=== PATIENT | female | born 1960 | race American Indian/Alaskan Native ===

== ENCOUNTER 2016-10-08 06:18 | Day surgery (SDC) | payer OTHER ==
[2016-10-08] MEDS ORDERED: ECOTRIN PO ONE (06:36)
[2016-10-08] MEDS ORDERED: NACL 0.9% 500 ML 500 ML IV SCH (07:00)
[2016-10-08 07:29] LABS: Basophils % (Auto) 0.8 % (0.0-1.8); Eosinophils % (Auto) 2.3 % (0.0-4.3); Hematocrit 37.4 % (30.3-42.9); Hemoglobin 12.8 gm/dl (10.1-14.3); Mean Corpuscular HGB Conc 34 % (30-34); Mean Corpuscular Hemoglobin 30 pg (28-32); Mean Corpuscular Volume 88 fl (79-97); Platelet Count 191 K/mm3 (140-440); Red Blood Count 4.25 M/mm3 (3.65-5.03); Red Cell Distribution Width 13.4 % (13.2-15.2); White Blood Count 8.3 K/mm3 (4.5-11.0)
[2016-10-08 07:40] LABS: Anion Gap 17 mmol/L; Blood Urea Nitrogen 16 mg/dL (7-17); Calcium 9.1 mg/dL (8.4-10.2); Carbon Dioxide 27 mmol/L (22-30); Chloride 102.6 mmol/L (98-107); Glucose 117 mg/dL (65-100); INR 0.98 (0.87-1.13); Sodium 143 mmol/L (137-145)
[2016-10-08] MEDS ORDERED: HEPARIN 10,000 UNITS/10 ML ONE (08:22)
[2016-10-08] MEDS ORDERED: HEPARIN/NS 5000 UNIT/500ML(CATH LAB) 1,000 ML IR ONE (08:22)
[2016-10-08] MEDS ORDERED: CALAN ONE (08:22)
[2016-10-08] MEDS: SUBLIMAZE ONE ×2 (08:32→08:43)
[2016-10-08] MEDS: HEPARIN 10,000 UNITS/10 ML ONE ×2 (08:33→08:42)
[2016-10-08] MEDS: VERSED ONE ×2 (08:33→08:42)
[2016-10-08] MEDS ORDERED: XYLOCAINE 2% INFILTRATI ONE (08:33)
[2016-10-08] MEDS: XYLOCAINE 2% INFILTRATI ONE ×2 (08:37→08:42)
[2016-10-08] MEDS ORDERED: PROVENTIL IH ONE (09:28)
--- NOTE | 2016-10-08 10:07 | Short Stay Summary ---
Short Stay Documentation Date of service: 10/08/16 - History H&P: obtained from office - Allergies and Medications Current Medications: Allergies hydrocodone bitartrate [From [place]] Allergy (Verified 10/08/16 06:35) Rash tramadol Allergy (Verified 10/08/16 06:35) Rash Home Medications Medication Instructions Recorded Confirmed Last Taken Type Aspirin [Adult Low Dose Aspirin EC] 81 mg PO QDAY 10/08/16 10/08/16 10/07/16 History Bumetanide [Bumetanide] 1 mg PO QDAY 10/08/16 10/08/16 10/07/16 History Glimepiride [Glimepiride] 4 mg PO QDAY 10/08/16 10/08/16 10/07/16 History Levothyroxine [Synthroid] 100 mcg PO QAM 10/08/16 10/08/16 10/07/16 History Metoprolol Tartrate [Lopressor] 50 mg PO QDAY 10/08/16 10/08/16 10/07/16 History Omeprazole (Nf) [PriLOSEC (Nf)] 20 mg PO QDAY 10/08/16 10/08/16 10/07/16 History Simvastatin [Simvastatin] 40 mg PO QDAY 10/08/16 10/08/16 10/07/16 History Active Medications Sodium Chloride (Nacl 0.9% 500 Ml) 500 mls @ 50 mls/hr IV DIRECT YOGESH Last Admin: 10/08/16 07:52 Dose: 50 mls/hr - Brief post op/procedure progress note Date of procedure: 10/08/16 Pre-op diagnosis: chest pain Procedure: left heart cath - Hospital course Hospital course: Please see dictated cath report. - Disposition Condition at discharge: Stable Disposition: DISCHARGED TO HOME OR SELFCARE - Discharge Diagnoses (1) Chest pain Status: Acute Qualifiers: Chest pain type: C (2) Normal coronary arteries Status: Chronic (3) Hypertension Status: Chronic Qualifiers: Hypertension type: H (4) Hyperlipidemia Status: Chronic Qualifiers: Hyperlipidemia type: H (5) Diabetes Status: Chronic Qualifiers: Diabetes mellitus type: D Diabetes mellitus complication status: D Diabetes mellitus complication detail: D Diabetic retinopathy severity: D Proliferative retinopathy type: P Diabetes mellitus macular edema: D Diabetes mellitus middle or intermediate school principal insulin use: D Laterality: L Chronic kidney disease stage: C (6) Asthma Status: Chronic Qualifiers: Asthma severity: A Asthma complication type: A Short Stay Discharge Plan Activity: advance as tolerated Weight Bearing Status: Weight Bear as Tolerated Diet: low fat, low cholesterol Wound: keep clean and dry Follow up with: PETER DESIR MD [Primary Care Provider] - 7 Days Forms: [employer] PCI D/C Instructions
--- NOTE | 2016-10-08 10:15 | Cardiac Catherization Report ---
CARDIAC CATHETERIZATION INDICATION FOR PROCEDURE: A 56-year-old female with history of asthma, hypertension, diabetes mellitus, and previous history of congestive heart failure. She is having atypical chest pain. She has abnormal nuclear imaging in the past. Cardiac catheterization done many years ago showed normal coronary anatomy. Because of persistent chest pain, she was offered a noninvasive testing; however, the patient wants to have definitive diagnosis and treatment. The patient was scheduled for cardiac catheterization. The patient had echocardiogram done which showed ejection fraction of 45-50%, grade 1 elevated diastolic dysfunction and mildly dilated left atrium noted. DESCRIPTION OF PROCEDURE: The patient was brought to the catheterization laboratory in a fasting condition. The right wrist area and forearm thoroughly cleansed with Betadine solution. Sterile drapes were applied. Local anesthesia was achieved using 2% Xylocaine. Right radial artery puncture was made using 21-gauge arterial puncture needle. The patient is having persistent coughing and wheezing with history of asthma. Subsequently, using multipurpose catheter angiograms of the right coronary artery were obtained in ANDERSON and FRENCH projections. Subsequently, a 5-Bengali TIG catheter was used to obtain the angiograms of the left coronary artery in multiple views. Finally, left ventriculogram was performed using power injector and multipurpose catheter. An 8 mL of dye was injected per second, total of 24 mL. At the end of the procedure, catheter and sheath were removed. Good hemostasis was achieved with pressure bandage. Following findings were noted: 1. Aortic pressure 141/84, left ventricular pressure 143/21. No gradient across the aortic valve. Estimated ejection fraction 30-35%. 2. Left ventriculogram done in ANDERSON projection using power injector showed mildly dilated left ventricle with moderate diffuse hypokinesis. Ejection fraction was estimated to be around 30-35%. No significant mitral regurgitation was noted. 3. Right coronary artery arises normally from right coronary cusp, angiographically smooth and normal. This is dominant vessel. 4. Left coronary artery arises normally from left coronary cusp, left main, LAD, which curves around the apex and its branches and circumflex artery and its branches are angiographically smooth and normal. FINAL IMPRESSION: 1. Mildly dilated LV with diffuse hypokinesis, ejection fraction 30-35%. End diastolic pressure is elevated up to 20 mmHg. No significant mitral regurgitation noted. 2. Normal coronary anatomy, RCA being the dominant vessel. The patient at this time appears to have dilated cardiomyopathy. As mentioned above, the patient is having constant coughing and wheezing during the procedure, probably related to her asthma. Otherwise, procedure was uncomplicated. The patient will be given bronchodilator treatment. JOB# [id number] WENDY/LES
[2016-10-08 13:19] VITALS: BP 148/64
== END 2016-10-08 13:10 | disposition home or self-care (01) ==
LOC: OPU 06:18
PROVIDERS: ATTEND Internal Medicine
DX: R07.89 Other chest pain (principal); E78.5 Hyperlipidemia, unspecified; E11.9 Type 2 diabetes mellitus without complications; J45.909 Unspecified asthma, uncomplicated; I11.0 Hypertensive heart disease with heart failure; I50.9 Heart failure, unspecified
CPT/HCPCS: 36415; 80048; 82962; 85025; 85610; 85730; 93005; 93010; 93458; C1769; C1887; C1894; J1644; J2250; J3010; J7040; Q9967

== ENCOUNTER 2022-04-05 07:16 | Emergency (ER) | payer OTHER ==
[2022-04-05] MEDS ORDERED: ONDANSETRON 4 MG/2 ML INJ IV ONE ×2 (11:01→20:16)
[2022-04-05] MEDS ORDERED: SODIUM CHLORIDE 0.9% 1000 ML 1,000 ML IV ONE ×2 (11:01→12:14)
[2022-04-05 12:14] LABS: Basophils # (Auto) 0.1 K/mm3 (0.0-0.1); Basophils % (Auto) 0.9 % (0.0-1.8); Eosinophils % (Auto) 0.5 % (0.0-4.3); Hematocrit 37.7 % (30.3-42.9); Hemoglobin 12.9 gm/dl (10.1-14.3); Lymphocytes # (Auto) 1.8 K/mm3 (1.2-5.4); Lymphocytes % (Auto) 21.3 % (13.4-35.0); Mean Corpuscular HGB Conc 34 % (30-34); Mean Corpuscular Volume 85 fl (79-97); Monocytes # (Auto) 0.7 K/mm3 (0.0-0.8); Monocytes % (Auto) 7.7 % (0.0-7.3); Platelet Count 241 K/mm3 (140-440); Red Blood Count 4.42 M/mm3 (3.65-5.03); Red Cell Distribution Width 13.8 % (13.2-15.2)
[2022-04-05 12:35] LABS: Alanine Aminotransferase 9 units/L (7-56); Albumin 3.3 g/dL (3.9-5); BUN/Creatinine Ratio 9; Blood Urea Nitrogen 9 mg/dL (7-17); Calcium 8.9 mg/dL (8.4-10.2); Hemolysis Index 1
[2022-04-05] MEDS ORDERED: POTASSIUM CHLORIDE 20 MEQ 20 MEQ/100 ML BAG IV ONE (12:45)
[2022-04-05] MEDS ORDERED: POTASSIUM CHLORIDE ER 20 MEQ TAB PO ONE (12:45)
[2022-04-05] MEDS ORDERED: POTASSIUM CHLORIDE 10 MEQ 10 MEQ/100 ML BAG IV SCH (13:00)
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
[2022-04-05] MEDS ORDERED: MORPHINE 4 MG/1 ML INJ IV ONE (14:33)
[2022-04-05 14:55] LABS: Amphetamine Screen,Urine Negative; Benzodiazepines Screen,Urine Negative; Methadone Screen,Urine Negative; Opiate Screen,Urine Negative
[2022-04-05] MEDS ORDERED: ONDANSETRON 4 MG/2 ML INJ ONE ×2 (15:08→20:17)
[2022-04-05 15:10] LABS: Cannabinoid Screen,Urine Positive; Cocaine Screen,Urine Positive
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
[2022-04-05] MEDS: POTASSIUM CHLORIDE 10 MEQ 10 MEQ/100 ML BAG IV SCH ×3 (15:28→22:40)
[2022-04-05] MEDS ORDERED: hydrALAZINE 20 MG/1 ML INJ IV ONE (16:02)
[2022-04-05] MEDS ORDERED: fentaNYL 100 MCG/2 ML INJ IV ONE (20:08)
[2022-04-05 21:06] LABS: Alanine Aminotransferase 9 units/L (7-56); Albumin 2.9 g/dL (3.9-5); BUN/Creatinine Ratio 9; Blood Urea Nitrogen 8 mg/dL (7-17); Calcium 8.7 mg/dL (8.4-10.2); Hemolysis Index 5
[2022-04-06] MEDS: POTASSIUM CHLORIDE 10 MEQ 10 MEQ/100 ML BAG IV SCH ×7 (02:15→15:34)
[2022-04-06] MEDS ORDERED: POTASSIUM CHLORIDE ER 20 MEQ TAB PO ONE (06:09)
[2022-04-06] MEDS ORDERED: LORazepam 2 MG/ML VIAL IM PRN (06:11)
[2022-04-06] MEDS ORDERED: HALOPERIDOL LACTATE 5 MG/1 ML INJ IM PRN (06:11)
[2022-04-06] MEDS: LEVOTHYROXINE 100 MCG TAB PO SCH (07:06)
[2022-04-06] MEDS ORDERED: OMEPRAZOLE 20 MG PO SCH (10:00)
[2022-04-06] MEDS ORDERED: NON-FORMULARY EACH (Simvastatin [Simvastatin] 40 MG Tablet) PO SCH (10:00)
[2022-04-06] MEDS: PANTOPRAZOLE 20 MG TAB PO SCH (11:19)
[2022-04-06] MEDS: POTASSIUM CHLORIDE ER 20 MEQ TAB PO SCH (11:19)
[2022-04-06] MEDS: METOPROLOL TARTRATE 50 MG TAB PO SCH (11:19)
[2022-04-06] MEDS: MULTIVITAMINS ,THERAPEUTIC TAB PO SCH (15:00)
[2022-04-06] MEDS: GLIMEPIRIDE 4 MG TAB PO SCH (16:03)
[2022-04-06] MEDS ORDERED: TETANUS,DIPH,PERTUSS(ACELL) VACCINE 0.5 ML SYRINGE IM ONE (16:46)
[2022-04-06] MEDS ORDERED: PRAVASTATIN 80 MG TAB PO SCH (22:00)
[2022-04-07] MEDS: LEVOTHYROXINE 100 MCG TAB PO SCH (06:02)
[2022-04-07] MEDS: MULTIVITAMINS ,THERAPEUTIC TAB PO SCH (10:09)
[2022-04-07] MEDS: METOPROLOL TARTRATE 50 MG TAB PO SCH (10:10)
[2022-04-07] MEDS: PANTOPRAZOLE 20 MG TAB PO SCH (10:10)
[2022-04-07] MEDS: POTASSIUM CHLORIDE ER 20 MEQ TAB PO SCH (10:10)
[2022-04-07] MEDS: GLIMEPIRIDE 4 MG TAB PO SCH (10:11)
[2022-04-07] MEDS ORDERED: IBUPROFEN 800 MG TAB PO ONE (10:18)
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
[2022-04-07] MEDS ORDERED: POTASSIUM CHLORIDE ER 20 MEQ TAB PO ONE (16:13)
[2022-04-07 16:30] VITALS: BP 168/78
--- NOTE | 2022-04-08 18:04 | Electrocardiograph Report ---
[facility] Test Date: 2022-04-05 Test Time: 13:48:07 Pat Name: JUAN MANUEL SCHMITT Department: Room: Gender: F Structural Engineer: NURSE : 1960 Requested By: JAZMYNE CAMARENA Order Number: [id number] Reading MD: King Red Measurements Intervals [address] Rate: 94 P: 68 SD: 161 QRS: 17 QRSD: 105 T: -22 QT: 388 QTc: 485 Interpretive Statements Sinus rhythm LVH with secondary repolarization abnormality No previous ECG available for comparison Electronically Signed On 04-08-2022 18:04:33 EDT by King Red
== END 2022-04-07 16:28 | disposition home or self-care (01) ==
LOC: ED 07:16
DX: O99.340 Other mental disorders complicating pregnancy, unspecified trimester (principal); F32.A Depression, unspecified; E87.6 Hypokalemia; I11.0 Hypertensive heart disease with heart failure; I50.9 Heart failure, unspecified; E11.9 Type 2 diabetes mellitus without complications; K21.9 Gastro-esophageal reflux disease without esophagitis; G43.909 Migraine, unspecified, not intractable, without status migrainosus; J45.909 Unspecified asthma, uncomplicated; Z20.822 Contact with and (suspected) exposure to COVID-19; Z87.891 Personal history of nicotine dependence; Z3A.00 Weeks of gestation of pregnancy not specified; Z91.09 Other allergy status, other than to drugs and biological substances; Z79.899 Other long term (current) drug therapy
CPT/HCPCS: 36415; 70450; 71260; 72125; 80053; 80307; 83735; 84132; 84484; 85025; 90471; 90715; 93005; 96365; 96366; 96372; 96375; 96376; 99284; J0360; J1630; J2270; J2405; J3010; J3480; J7030; Q9967; U0003; 80320; 96361; G0480